=== PATIENT | male | born 1985 | race Caucasian/White ===

== ENCOUNTER 2023-01-25 17:36 | Emergency (ER) | payer MEDICAID ==
[~2023-01-25] VITALS: Ht 180.3 cm; Wt 68.2 kg
[2023-01-25 17:39] VITALS: BP 141/89
[2023-01-25] MEDS ORDERED: LORA-269 PO (19:30)
[2023-01-25] MEDS ORDERED: LORazepam 1 MG tablet PO ONE (19:30)
[2023-01-25] MEDS ORDERED: PRED20TA PO (19:45)
== END 2023-01-25 19:58 | disposition home or self-care (01) ==
LOC: ER 17:37
DX: F41.9 Anxiety disorder, unspecified (principal); M54.50 Low back pain, unspecified; Z79.899 Other long term (current) drug therapy
CPT/HCPCS: 99283

== ENCOUNTER 2023-03-22 10:06 | Emergency (ER) | payer MEDICAID ==
[~2023-03-22] VITALS: Ht 180.3 cm; Wt 64.6 kg
[~2023-03-22 10:06] MED LIST: LORA-269 PO
[2023-03-22 10:31] VITALS: BP 122/61
[2023-03-22] MEDS ORDERED: DIAZ2TAB PO (10:48)
== END 2023-03-22 11:50 | disposition home or self-care (01) ==
LOC: ER 10:06
DX: M62.838 Other muscle spasm (principal); G89.29 Other chronic pain; Z76.0 Encounter for issue of repeat prescription; Z98.890 Other specified postprocedural states; Z79.899 Other long term (current) drug therapy
CPT/HCPCS: 99281

== ENCOUNTER 2024-07-23 12:23 | Outpatient (CLI) | payer MEDICAID ==
[~2024-07-23 12:23] MED LIST changes: +DIAZ2TAB PO
== END 2024-07-23 23:59 | disposition home or self-care (01) ==
LOC: MRI02 12:23
PROVIDERS: ATTEND Nurse Practitioner Family
DX: M25.561 Pain in right knee (principal)
CPT/HCPCS: 73221